=== PATIENT | female | born 1965 | race Caucasian/White ===

== ENCOUNTER 2020-03-15 16:03 | Emergency (ER) | payer OTHER ==
[~2020-03-15] VITALS: Ht 175.3 cm; Wt 90.7 kg
[2020-03-15 16:17] VITALS: BP 137/93; Ht 175.3 cm; Wt 90.7 kg
== END 2020-03-15 17:00 | disposition other institution (70) ==
LOC: ED 16:03
DX: Z02.89 Encounter for other administrative examinations (principal)